=== PATIENT | male | born 1970 | race Caucasian/White ===

== ENCOUNTER → 2019-09-08 | Outpatient (CLI) | payer BC ==
[2019-09-08 09:39] LABS: BUN 18 mg/dl (7-24); CHLORIDE 108 mmol/L (98-107); CREATININE 1.18 mg/dL (0.70-1.30); POTASSIUM 4.3 mmol/L (3.5-5.1); SODIUM 139 mmol/L (136-145)
== END | disposition home or self-care (01) ==
LOC: LAB 08:43
PROVIDERS: Orthopaedic Surgery
DX: Z01.818 Encounter for other preprocedural examination (principal); J43.9 Emphysema, unspecified

== ENCOUNTER → 2023-06-02 | Outpatient (CLI) | payer BC | END | disposition home or self-care (01) | LOC: CT 05-27 13:00 | PROVIDERS: ATTEND Family Medicine | DX: J43.2 Centrilobular emphysema (principal); R91.1 Solitary pulmonary nodule; I71.21 Aneurysm of the ascending aorta, without rupture; I25.10 Atherosclerotic heart disease of native coronary artery without angina pectoris ==